=== PATIENT | female | born 1995 | race Caucasian/White ===

== ENCOUNTER 2021-04-13 21:59 | Emergency (ER) | payer OTHER ==
[2021-04-13] MEDS ORDERED: HYDROmorphone 1 MG/ML Syringe IVPUSH STA (22:51)
[2021-04-13] MEDS ORDERED: Ondansetron 4 MG/2 ML SDV IVPUSH ONE (22:51)
[2021-04-13] MEDS ORDERED: Sodium Chloride 0.9% 1,000 ML IV SCH (23:00)
--- NOTE | 2021-04-13 23:00 | EDM.PDOC ---
ED HPI GENERAL MEDICAL PROBLEM - General Chief Complaint: Abdominal Pain Stated Complaint: RIGHT SIDE PAIN Time Seen by Provider: 04/13/21 22:30 Source of Information: Reports: Patient, Other (Friend) History Limitations: Reports: No Limitations - History of Present Illness INITIAL COMMENTS - FREE TEXT/NARRATIVE: Ms. Grayson is a 25-year-old woman who now presents to the ED stating that she developed sudden-onset sharp pain felt in her right flank, radiating to her right lower quadrant, on 04/10/2021. She states that the pain has been waxing and waning since, significantly improving yesterday, 04/12/2021, but worse again today. She states that she briefly feels better if she urinates or defecates, otherwise, she has not identified any modifiers. She has had both nausea and vomiting. No recent fever or dysuria. She states that she chronically has urinary frequency, which is unchanged. No prior similar symptoms. The patient states that she took acetaminophen and ibuprofen on Monday, which did not help. She has not taken any medications since. Here in the ED, the patient's initial BP is found to be mildly elevated at 141/99, with a tachycardia of 130 bpm. She is afebrile, saturating 99% on room air. She appears to be somewhat anxious and uncomfortable, although in no acute distress. Prior to Monday, the patient denies having a recent fever, chills, sore throat, ear pain, nasal or sinus congestion, cough, dyspnea, chest pain, palpitations, nausea, vomiting, constipation, diarrhea, abdominal pain, urinary symptoms, recent weight gain or weight loss, recent bloody bowel movements or black bowel movements, recent joint aches, headaches, or rashes. The patient's PCP is Velma Yuen NP. She does not recall the name of her Neurologist at [facility]. She has received 2 COVID vaccinations. Right Lower Abdomen Pain Score (Numeric/FACES): 8 - Related Data Allergies Allergy/AdvReac Type Severity Reaction Status Date / Time No Known Allergies Allergy Verified 04/13/21 22:11 Home Meds: Home Meds Buspirone. 1 dose PO DAILY 04/13/21 [History] Sertraline. 1 dose PO DAILY 04/13/21 [History] Ondansetron [Zofran ODT] 1 tab PO Q8H PRN #10 tab.dis 04/14/21 [Rx] traMADol [Ultram] 1 tab PO Q6H PRN #10 tab 04/14/21 [Rx] Past Medical History Respiratory History: Reports: Asthma (suspected, not PFT-tested) Neurological History: Reports: Migraines (chronic) Psychiatric History: Reports: Anxiety, Depression Endocrine/Metabolic History: Reports: Obesity/BMI 30+ - Past Surgical History HEENT Surgical History: Reports: Adenoidectomy, Tonsillectomy GI Surgical History: Reports: Cholecystectomy (2015) Social & Family History - Tobacco Use Tobacco Use Status *Q: Never Tobacco User Second Hand Smoke Exposure: No - Alcohol Use Alcohol Use History: Yes Alcohol Use Frequency: Socially - Recreational Drug Use Recreational Drug Use: No - Living Situation & Occupation Living situation: Reports: Single, Alone Occupation: Employed (Dispatcher, [employer]) ED ROS GENERAL - Review of Systems Review Of Systems: Comprehensive ROS is negative, except as noted in HPI. ED EXAM, GENERAL - Physical Exam Exam: See Below Exam Limited By: No Limitations General Appearance: Alert, WD/WN, Anxious Eye Exam: Bilateral Eye: EOMI, Normal Inspection Ears: Normal External Exam, Hearing Grossly Normal Nose: Normal Inspection Throat/Mouth: Normal Inspection, Normal Lips, Normal Voice, No Airway Compromise Head: Atraumatic, Normocephalic Neck: Normal Inspection, Full Range of Motion Respiratory/Chest: No Respiratory Distress, Lungs Clear, Normal Breath Sounds, No Accessory Muscle Use Cardiovascular: Normal Peripheral Pulses, No Gallop, No JVD, No Murmur, No Rub, Tachycardia (regular) Peripheral Pulses: 3+: Radial (L), Radial (R) GI/Abdominal: Normal Bowel Sounds, Soft, No Organomegaly, No Distention, No Abnormal Bruit, No Mass, Tender (entire abdomen, but more on the right side than the left) Back Exam: Normal Inspection, Full Range of Motion, CVA Tenderness (R). No: CVA Tenderness (L) Extremities: Normal Inspection, Normal Range of Motion, Normal Capillary Refill Neurological: Alert, Oriented, Normal Cognition, No Motor/Sensory Deficits Psychiatric: Normal Affect Skin Exam: Warm, Dry, Intact, Normal Color, No Rash Course - Vital Signs Last Recorded V/S: Last Vital Signs Temp 37.6 C 04/13/21 22:09 Pulse 130 H 04/13/21 22:09 Resp 16 04/13/21 22:09 BP 141/99 H 04/13/21 22:09 Pulse Ox 99 04/13/21 22:09 - Orders/Labs/Meds Orders: Active Orders 24 hr Category Date Time Status Strain Urine [RC] ASDIRECTED Care 04/13/21 22:52 Active Abdomen Pelvis w Cont [CT] Stat Exams 04/13/21 22:51 Taken Sodium Chloride 0.9% [Normal Saline] 1,000 ml Med 04/13/21 23:00 Active IV ASDIRECTED Medication Orders Sodium Chloride (Normal Saline) 1,000 mls @ 150 mls/hr IV ASDIRECTED TATYANA Last Admin: 04/13/21 23:08 Dose: 150 mls/hr Documented by: ABBEY Labs: Laboratory Tests 04/13/21 04/13/21 04/13/21 Range/Units 22:51 22:51 23:10 WBC 15.33 H (3.98-10.04) K/mm3 RBC 4.98 (3.98-5.22) M/mm3 Hgb 14.7 (11.2-15.7) gm/dl Hct 43.4 (34.1-44.9) % MCV 87.1 (79.4-94.8) fl MCH 29.5 (25.6-32.2) pg MCHC 33.9 (32.2-35.5) g/dl RDW Std Deviation 41.2 (36.4-46.3) fL Plt Count 339 (182-369) K/mm3 MPV 10.2 (9.4-12.3) fl Neutrophils % (Manual) 89 H (40-60) % Band Neutrophils % 0 (0-10) % Lymphocytes % (Manual) 9 L (20-40) % Atypical Lymphs % 0 % Monocytes % (Manual) 2 (2-10) % Eosinophils % (Manual) 0 L (0.7-5.8) % Basophils % (Manual) 0 L (0.1-1.2) Toxic Granulation 1+ slight Platelet Estimate Adequate RBC Morph Comment Normal Sodium (136-145) mEq/L Potassium (3.5-5.1) mEq/L Chloride (98-107) mEq/L Carbon Dioxide (21-32) mEq/L Anion Gap (5-15) BUN (7-18) mg/dL Creatinine (0.55-1.02) mg/dL Est Cr Clr Drug Dosing mL/min Estimated GFR (MDRD) (>60) mL/min BUN/Creatinine Ratio (14-18) Glucose (70-99) mg/dL Calcium (8.5-10.1) mg/dL Total Bilirubin (0.2-1.0) mg/dL AST (15-37) U/L ALT (14-59) U/L Alkaline Phosphatase (46-116) U/L Total Protein (6.4-8.2) g/dl Albumin (3.4-5.0) g/dl Globulin gm/dL Albumin/Globulin Ratio (1-2) Lipase (73-393) U/L Urine Color Yellow (Yellow) Urine Appearance Clear (Clear) Urine pH 6.0 (5.0-8.0) Ur Specific [place] 1.025 (1.005-1.030) Urine Protein Negative (Negative) Urine Glucose (UA) Negative (Negative) Urine Ketones Negative (Negative) Urine Occult Blood Negative (Negative) Urine Nitrite Negative (Negative) Urine Bilirubin Negative (Negative) Urine Urobilinogen 0.2 (0.2-1.0) Ur Leukocyte Esterase Negative (Negative) Urine RBC 0-5 (0-5) /hpf Urine WBC Not seen (0-5) /hpf Ur Squamous Epith Cells 0-5 (0-5) /hpf Urine Bacteria Not seen (FEW) /hpf Urine Mucus Not seen (FEW) /hpf Urine HCG, Qual Negative (NEGATIVE) 04/13/21 Range/Units 23:10 WBC (3.98-10.04) K/mm3 RBC (3.98-5.22) M/mm3 Hgb (11.2-15.7) gm/dl Hct (34.1-44.9) % MCV (79.4-94.8) fl MCH (25.6-32.2) pg MCHC (32.2-35.5) g/dl RDW Std Deviation (36.4-46.3) fL Plt Count (182-369) K/mm3 MPV (9.4-12.3) fl Neutrophils % (Manual) (40-60) % Band Neutrophils % (0-10) % Lymphocytes % (Manual) (20-40) % Atypical Lymphs % % Monocytes % (Manual) (2-10) % Eosinophils % (Manual) (0.7-5.8) % Basophils % (Manual) (0.1-1.2) Toxic Granulation Platelet Estimate RBC Morph Comment Sodium 137 (136-145) mEq/L Potassium 3.6 (3.5-5.1) mEq/L Chloride 99 (98-107) mEq/L Carbon Dioxide 27 (21-32) mEq/L Anion Gap 14.6 (5-15) BUN 11 (7-18) mg/dL Creatinine 0.9 (0.55-1.02) mg/dL Est Cr Clr Drug Dosing 89.45 mL/min Estimated GFR (MDRD) > 60 (>60) mL/min BUN/Creatinine Ratio 12.2 L (14-18) Glucose 95 (70-99) mg/dL Calcium 9.6 (8.5-10.1) mg/dL Total Bilirubin 0.4 (0.2-1.0) mg/dL AST 19 (15-37) U/L ALT 29 (14-59) U/L Alkaline Phosphatase 99 (46-116) U/L Total Protein 8.0 (6.4-8.2) g/dl Albumin 4.2 (3.4-5.0) g/dl Globulin 3.8 gm/dL Albumin/Globulin Ratio 1.1 (1-2) Lipase 117 (73-393) U/L Urine Color (Yellow) Urine Appearance (Clear) Urine pH (5.0-8.0) Ur Specific [place] (1.005-1.030) Urine Protein (Negative) Urine Glucose (UA) (Negative) Urine Ketones (Negative) Urine Occult Blood (Negative) Urine Nitrite (Negative) Urine Bilirubin (Negative) Urine Urobilinogen (0.2-1.0) Ur Leukocyte Esterase (Negative) Urine RBC (0-5) /hpf Urine WBC (0-5) /hpf Ur Squamous Epith Cells (0-5) /hpf Urine Bacteria (FEW) /hpf Urine Mucus (FEW) /hpf Urine HCG, Qual (NEGATIVE) Meds: Medications Generic Name Dose Route Start Last Admin Trade Name Freq PRN Reason Stop Dose Admin Sodium Chloride 1,000 mls @ 150 mls/hr 04/13/21 23:00 04/13/21 23:08 Normal Saline IV 150 mls/hr ASDIRECTED TATYANA Administration Discontinued Medications Generic Name Dose Route Start Last Admin Trade Name Anette PRN Reason Stop Dose Admin Hydromorphone HCl 1 mg 04/13/21 22:51 04/13/21 23:08 Hydromorphone 1 Mg/Ml Syringe IVPUSH 04/13/21 22:52 1 mg ONETIME STA Administration Hydromorphone HCl 1 mg 04/14/21 01:23 04/14/21 01:30 Hydromorphone 1 Mg/Ml Syringe IVPUSH 04/14/21 01:24 1 mg ONETIME ONE Administration Metoclopramide HCl 10 mg 04/13/21 23:57 04/14/21 00:02 Metoclopramide 10 Mg/2 Ml Sdv IVPUSH 04/13/21 23:58 10 mg ONETIME STA Administration Ondansetron HCl 4 mg 04/13/21 22:51 04/13/21 23:08 Ondansetron 4 Mg/2 Ml Sdv IVPUSH 04/13/21 22:52 4 mg ONETIME ONE Administration - Re-Assessments/Exams Free Text/Narrative Re-Assessment/Exam: 04/13/21 22:53 The patient's history strongly suggest a right sided ureterolith, and she has right CVA tenderness, however, she insists that she has tenderness to palpation of her abdomen, particularly the right side of the abdomen, therefore an intra- abdominal process is a possibility. I have therefore ordered a work-up that includes several blood tests, a urinalysis and urine test, and a CT of the abdomen and pelvis with oral and IV contrast. In the meantime, the patient will be treated with IV Dilaudid, IV Zofran, and IV fluid. Once she has provided us a urine sample, we will strain all subsequent urine. 04/13/21 23:19 Notified by Angella CHAUDHARY that the patient will not be able to drink oral contrast, as she is allergic to kiwis and bananas. 04/14/21 00:29 The patient's CBC is remarkable for mild leukocytosis of 15.33, but with 0% bandemia, and the remainder of her CBC being unremarkable. Her CMP is unremarkable. Her lipase level is within normal limits at 117. Her urinalysis is unremarkable. Her urine test is negative. Results of her CT of the abdomen and pelvis with IV contrast is pending. 04/14/21 01:55 CT of the abdomen and pelvis with IV contrast is read by Robert as: 1. No acute pathologic abnormality. 2. Remainder of findings described as above. 04/14/21 01:59 Test results discussed with the patient and her friend. As above, today's work- up is completely unremarkable, and does not explain the cause of her pain. I reassured her that whatever the cause, it does not appear to be due to anything serious. I will recommend that she take [id number] ibuprofen every 8 hours, as needed. I will discharge her home with prescriptions for tramadol and Zofran ODT. If her symptoms persist, she should follow-up with Velma Yuen NP, for further evaluation. Departure - Departure Time of Disposition: 02:01 Disposition: Home, Self-Care 01 Condition: Good Clinical Impression: Right flank pain, Right-sided abdominal pain of unknown etiology, Nausea & vomiting - Discharge Information *PRESCRIPTION DRUG MONITORING PROGRAM REVIEWED*: Not Applicable *COPY OF PRESCRIPTION DRUG MONITORING REPORT IN PATIENT UNIQUE: Not Applicable Prescriptions: traMADol [Ultram] 1 tab PO Q6H PRN #10 tab PRN Reason: Pain (Severe 7-10) Ondansetron [Zofran ODT] 1 tab PO Q8H PRN #10 tab.dis PRN Reason: Nausea/Vomiting Referrals: Velma Yuen NP [Primary Care Provider] - Forms: ED Department Discharge Additional Instructions: You were seen in the emergency room after developing right flank pain radiating around to your lower right abdomen, along with nausea and vomiting. Work-up in the ER included several blood tests, a urinalysis, a urine test, and a CT of your abdomen and pelvis with IV contrast. Your entire work-up was unremarkable, and does not explain the cause of your pain, however, you can be reassured that it does not appear to be due to anything serious. We recommend you take [id number] ibuprofen, 3 tablets (600 mg) up to every 8 hours, with food, as needed for discomfort. A prescription for the opioid pain reliever tramadol has been provided to you. You may take 1 tablet of tramadol up to every 6 hours, as needed for pain not relieved by ibuprofen. If you take tramadol, do not drive or operate heavy machinery for 12 hours afterwards. Tramadol may cause constipation, so consider taking a stool softener. A prescription for the antinausea medicine Zofran ODT has been provided to you. Dissolve 1 tablet of Zofran on your tongue up to every 8 hours, as needed for nausea/vomiting. Stay adequately hydrated. If your symptoms persist, please follow-up with your PCP, Velma Yuen NP. If your symptoms worsen, please do not hesitate to return to the ER. Sepsis Event Note (ED) - Evaluation Sepsis Screening Result: Possible Sepsis Risk - Focused Exam Vital Signs: Vital Signs Temp Pulse Resp BP Pulse Ox 04/13/21 22:09 37.6 C 130 H 16 141/99 H 99 - My Orders Last 24 Hours: My Active Orders 04/13/21 22:51 Abdomen Pelvis w Cont [CT] Stat 04/13/21 22:52 Strain Urine [RC] ASDIRECTED 04/13/21 23:00 Sodium Chloride 0.9% [Normal Saline] 1,000 ml IV ASDIRECTED - Assessment/Plan Last 24 Hours: My Active Orders 04/13/21 22:51 Abdomen Pelvis w Cont [CT] Stat 04/13/21 22:52 Strain Urine [RC] ASDIRECTED 04/13/21 23:00 Sodium Chloride 0.9% [Normal Saline] 1,000 ml IV ASDIRECTED
[2021-04-13] MEDS ORDERED: Metoclopramide 10 MG/2 ML SDV IVPUSH STA (23:57)
[2021-04-14] MEDS ORDERED: HYDROmorphone 1 MG/ML Syringe IVPUSH ONE (01:23)
--- NOTE | 2021-04-14 08:35 | CT ---
CT abdomen and pelvis Technique: Multiple axial sections were obtained from above the dome of the diaphragm inferiorly through the pubic symphysis. Intravenous contrast was utilized. No oral contrast has been given. Delayed images were also obtained through the bladder. Reconstructed coronal and sagittal images were obtained. Comparison: No prior CT abdomen or pelvis study is available for comparison. Findings: Visualized lung bases show nothing acute. Liver contains no focal parenchymal abnormality. Surgical clips are noted from prior cholecystectomy. Spleen size is normal. Pancreas shows no discrete abnormality. Adrenal glands show no nodule. Kidneys show symmetric contrast enhancement. Minimal calcification is seen within the central right kidney measuring about 3 mm in size which is compatible with a nonobstructing stone. No additional abnormality is seen within the kidneys. Abdominal aorta shows no aneurysm. No retroperitoneal adenopathy or mesenteric abnormalities are seen. No pelvic mass or adenopathy is seen. Delayed images show contrast within both distal ureters and within the bladder. Slight fluid is seen within the colon. This can relate to diarrheal disease although fluid is mostly noted within the right colon which can be seen normally. Appendix is seen and appears normal in size. Bone window settings were reviewed. Very minimal degenerative change is seen within the lower lumbar spine. No acute osseous finding is seen. Impression: 1. Small 3 mm nonobstructing stone within the mid right kidney. 2. Fluid within the colon most likely incidental but please exclude any diarrheal symptoms. 3. Prior cholecystectomy is noted. Other chronic findings as noted above. 4. Nothing acute is appreciated on CT study of the abdomen and pelvis. Diagnostic code #2 I agree with preliminary report from [facility], finalized on 04/14/21, 2:49 AM CDT, code 1
== END 2021-04-14 02:30 | disposition home or self-care (01) ==
LOC: JD.ED 21:59
DX: R10.31 Right lower quadrant pain (principal); R11.2 Nausea with vomiting, unspecified; D72.829 Elevated white blood cell count, unspecified; E66.9 Obesity, unspecified; Z68.39 Body mass index [BMI] 39.0-39.9, adult; Z79.899 Other long term (current) drug therapy
CPT/HCPCS: 36415; 74177; 80053; 81001; 81025; 83690; 85007; 85027; 96374; 96375; 96376; 99284; J1170; J2405; J2765; J7030

== ENCOUNTER 2022-05-03 06:53 | Day surgery (SDC) | payer OTHER ==
[~2022-05-03 06:53] MED LIST: Lactated Ringers 1,000 ML IV SCH; Lidocaine 1%/Sod Bicarbonate in NS 8.4% 1 ML Syringe IDERM PRN; Sodium Chloride 0.9% 10 ML Syringe FLUSH PRN; Sodium Chloride 0.9% 10 ML Syringe FLUSH SCH
[2022-05-03] MEDS ORDERED: Bupivacaine 0.5% 30 ML SDV ONE (07:18)
[2022-05-03] MEDS ORDERED: fentaNYL 250 MCG/5 ML SDV ONE (07:36)
[2022-05-03] MEDS ORDERED: Midazolam 1 MG/ML 2 ML SDV ONE (07:36)
[2022-05-03] MEDS ORDERED: Propofol 200 MG/20 ML SDV ONE (07:36)
[2022-05-03] MEDS ORDERED: Lidocaine 1% 5 ML VIAL ONE (07:37)
[2022-05-03] MEDS ORDERED: Dexamethasone 4 MG/ML 5 ML MDV ONE (07:37)
[2022-05-03] MEDS ORDERED: Ketorolac 30 MG/ML SDV ONE (07:37)
[2022-05-03] MEDS ORDERED: Ondansetron 4 MG/2 ML SDV ONE (07:37)
[2022-05-03] MEDS ORDERED: diphenhydrAMINE 50 MG/ML SDV ONE (07:37)
[2022-05-03] MEDS ORDERED: Rocuronium 50 MG/5 ML Vial ONE (07:52)
[2022-05-03] MEDS ORDERED: HYDROmorphone 0.5 MG/0.5 ML Syringe ONE (08:19)
[2022-05-03] MEDS ORDERED: Lactated Ringers 1,000 ML ONE (08:27)
[2022-05-03] MEDS ORDERED: Scopolamine 1.5 MG Transdermal Patch TOP ONE (08:30)
[2022-05-03] MEDS ORDERED: Ondansetron 4 MG/2 ML SDV IVPUSH PRN (08:53)
[2022-05-03] MEDS ORDERED: HYDROmorphone 0.5 MG/0.5 ML Syringe IVPUSH PRN (08:53)
[2022-05-03] MEDS: fentaNYL 100 MCG/2 ML SDV IVPUSH PRN ×2 (08:59→09:13)
[2022-05-03] MEDS ORDERED: Acetaminophen/HYDROcodone 325-5 MG Tab PO PRN (09:34)
== END 2022-05-03 10:45 | disposition home or self-care (01) ==
LOC: JD.SDS 06:53
PROVIDERS: ATTEND Obstetrics & Gynecology
DX: R10.2 Pelvic and perineal pain (principal); J45.909 Unspecified asthma, uncomplicated; F41.8 Other specified anxiety disorders; G43.909 Migraine, unspecified, not intractable, without status migrainosus; G47.00 Insomnia, unspecified; E66.9 Obesity, unspecified; K21.9 Gastro-esophageal reflux disease without esophagitis; Z98.890 Other specified postprocedural states; Z91.018 Allergy to other foods; Z79.899 Other long term (current) drug therapy; Z68.41 Body mass index [BMI] 40.0-44.9, adult
CPT/HCPCS: 49320; 81025; A9270; J1100; J1170; J1200; J1885; J2250; J2405; J2704; J3010; J3490; J7120; 00840

== ENCOUNTER 2022-05-08 17:07 | Emergency (ER) | payer OTHER ==
[2022-05-08] MEDS ORDERED: Ondansetron 4 MG/2 ML SDV IVPUSH ONE (18:25)
[2022-05-08] MEDS ORDERED: HYDROmorphone 1 MG/ML Syringe IVPUSH STA (18:25)
[2022-05-08] MEDS ORDERED: Sodium Chloride 0.9% 10 ML Syringe FLUSH PRN (18:25)
[2022-05-08] MEDS ORDERED: Sodium Chloride 0.9% 1,000 ML IV SCH (18:30)
[2022-05-08] MEDS ORDERED: Iopamidol 612 MG/ML 100 ML Bottle IVPUSH ONE (18:55)
[2022-05-08] MEDS ORDERED: Iopamidol 612 MG/ML 50 ML SDV IVPUSH ONE (18:55)
[2022-05-08] MEDS ORDERED: HYDROmorphone 0.5 MG/0.5 ML Syringe IVPUSH ONE (19:28)
[2022-05-08] MEDS ORDERED: Morphine 4 MG/ML Syringe IVPUSH ONE (21:00)
[2022-05-08] MEDS ORDERED: Orphenadrine 100 MG Tab.ER PO ONE (21:36)
[2022-05-08] MEDS ORDERED: LORazepam 2 MG/ML SDV IVPUSH ONE (22:11)
== END 2022-05-08 22:55 | disposition home or self-care (01) ==
LOC: JD.ED 17:07
DX: R10.31 Right lower quadrant pain (principal); M62.838 Other muscle spasm; K21.9 Gastro-esophageal reflux disease without esophagitis; E66.9 Obesity, unspecified; Z68.42 Body mass index [BMI] 45.0-49.9, adult; Z91.018 Allergy to other foods; Z79.899 Other long term (current) drug therapy
CPT/HCPCS: 36415; 74177; 80053; 81001; 83690; 84703; 85025; 86140; 96361; 96374; 96375; 96376; 99284; A9270; J1170; J2060; J2270; J2405; J3490; J7030; Q9967

== ENCOUNTER 2023-03-21 16:40 | Emergency (ER) | payer OTHER ==
[2023-03-21] MEDS ORDERED: Sodium Chloride 0.9% 10 ML Syringe FLUSH PRN (17:58)
[2023-03-21] MEDS ORDERED: diphenhydrAMINE 50 MG/ML SDV IVPUSH ONE (17:58)
[2023-03-21] MEDS ORDERED: Sodium Chloride 0.9% 1,000 ML IV ONE (17:58)
[2023-03-21] MEDS ORDERED: Metoclopramide 10 MG/2 ML SDV IVPUSH ONE (17:58)
[2023-03-21] MEDS ORDERED: Ketorolac 30 MG/ML SDV IVPUSH ONE (17:58)
[2023-03-21 18:23] LABS: BASOPHILS ABSOLUTE AUTO 0.03 K/mm3 (0.01-0.08); BASOPHILS PERCENT AUTO 0.2 % (0.1-1.2); EOSINOPHILS ABSOLUTE AUTO 0.11 K/mm3 (0.04-0.36); EOSINOPHILS PERCENT AUTO 0.8 (0.7-5.8); HEMATOCRIT 40.3 % (34.1-44.9); HEMOGLOBIN 13.8 gm/dl (11.2-15.7); IMMATURE GRAN ABSOLUTE AUTO 0.05 K/mm3 (0.00-0.10); IMMATURE GRAN PERCENT AUTO 0.4 % (<=1.0); LYMPHOCYTES ABSOLUTE AUTO 4.18 K/mm3 (1.18-3.74); LYMPHOCYTES PERCENT AUTO 29.3 % (19.3-51.7); MEAN CORPUSCULAR HEMOGLOBIN 29.7 pg (25.6-32.2); MEAN CORPUSCULAR HGB CONC 34.2 g/dl (32.2-35.5); MEAN CORPUSCULAR VOLUME 86.7 fl (79.4-94.8); MEAN PLATELET VOLUME 9.9 fl (9.4-12.3); MONOCYTES ABSOLUTE AUTO 0.79 K/mm3 (0.24-0.36); MONOCYTES PERCENT AUTO 5.5 % (4.7-12.5); NEUTROPHILS PERCENT AUTO 63.8 % (34.0-71.1); PLATELET COUNT,PLT 376 K/mm3 (182-369); RED BLOOD CELL COUNT 4.65 M/mm3 (3.98-5.22); WHITE BLOOD CELL COUNT,WBC 14.26 K/mm3 (3.98-10.04)
[2023-03-21 18:45] LABS: ALBUMIN 3.5 g/dl (3.4-5.0); ANION GAP 12.1 (5-15); BILIRUBIN TOTAL 0.2 mg/dL (0.2-1.0); BUN/CREATININE RATIO 12.2 (14-18); CALCIUM 9.1 mg/dL (8.5-10.1); CREATININE 0.9 mg/dL (0.55-1.02); EST CRCL DRUG DOSING (CG) 87.9 mL/min; MAGNESIUM 1.9 mg/dL (1.8-2.4); POTASSIUM,K 4.1 mEq/L (3.5-5.1); PROTEIN TOTAL,TP 7.1 g/dl (6.4-8.2)
== END 2023-03-21 19:40 | disposition home or self-care (01) ==
LOC: JD.ED 16:40
DX: G43.109 Migraine with aura, not intractable, without status migrainosus (principal); K21.9 Gastro-esophageal reflux disease without esophagitis; E66.9 Obesity, unspecified; J45.909 Unspecified asthma, uncomplicated; Z91.018 Allergy to other foods; Z68.42 Body mass index [BMI] 45.0-49.9, adult
CPT/HCPCS: 36415; 70450; 80053; 83735; 85025; 96374; 96375; 99284; J1200; J1885; J2765; J3490; J7030

== ENCOUNTER 2023-07-04 03:05 | Emergency (ER) | payer OTHER ==
[2023-07-04] MEDS ORDERED: Ibuprofen 600 MG Tab PO ONE (03:34)
[2023-07-04 05:29] LABS: INFLUENZA A NAA NEGATIVE (NEGATIVE); RESPIRATORY SYNCYTIAL VIR NAA NEGATIVE (NEGATIVE)
[2023-07-04 05:33] LABS: CORONAVIRUS COVID-19 NAA POSITIVE (NEGATIVE)
== END 2023-07-04 05:45 | disposition home or self-care (01) ==
LOC: JD.ED 03:05
DX: U07.1 COVID-19 (principal); J45.909 Unspecified asthma, uncomplicated; E66.9 Obesity, unspecified; K21.9 Gastro-esophageal reflux disease without esophagitis; Z68.41 Body mass index [BMI] 40.0-44.9, adult; Z79.899 Other long term (current) drug therapy; Z91.018 Allergy to other foods
CPT/HCPCS: 0241U; 71045; 87651; 93005; 99285; A9270; 93010; 99283